=== PATIENT | male | born 1985 | race Caucasian/White ===

== ENCOUNTER 2024-04-07 08:40 | Inpatient (IN) | payer MEDICARE, MEDICAID ==
[~2024-04-07] VITALS: Ht 185.4 cm; Wt 96.6 kg
[~2024-04-07 08:40] MED LIST: FLUO-167 PO; HYDR-3686 PO; LITH450T2 PO; OLAN5TAB29 PO; PALI6TAB PO
[2024-04-07 09:40] LABS: BASOPHILS % (AUTO) 0.4 % (0-1); EOSINOPHILS # (AUTO) 0.1 X10'3 (0-0.9); EOSINOPHILS % (AUTO) 1.3 % (0-6); HEMATOCRIT 41.5 % (42.0-52.0); HEMOGLOBIN 13.9 g/dl (14.0-17.9); LYMPHOCYTES # (AUTO) 1.7 X10'3 (1.1-4.8); LYMPHOCYTES % (AUTO) 20.8 % (21-51); MEAN CORPUSCULAR HEMOGLOBIN 28.9 PG (27.0-31.0); MEAN CORPUSCULAR HGB CONC 33.5 g/dL (33.0-36.5); MEAN CORPUSCULAR VOLUME 86.1 FL (78-98); MONOCYTES # (AUTO) 0.6 X10'3 (0-0.9); MONOCYTES % (AUTO) 7.2 % (2-12); NEUTROPHILS # (AUTO) 5.6 X10'3 (1.8-7.7); NEUTROPHILS % (AUTO) 70.3 % (42-75); PLATELET COUNT 290 X10'3 (140-440); RED BLOOD COUNT 4.82 X10'6 (4.70-6.10); RED CELL DISTRIBUTION WIDTH 13.6 % (11.5-14.5)
[2024-04-07 10:05] LABS: ALBUMIN 3.5 G/DL (3.4-5.0); ANION GAP 7 (8-16); BLOOD UREA NITROGEN 16 MG/DL (7-18); BUN/CREATININE RATIO 16.7 (10.0-20.0); CALCIUM 9.2 MG/DL (8.5-10.1); CHLORIDE 105 MMOL/L (99-107); CREATININE 0.96 MG/DL (0.60-1.10); GLUCOSE 107 MG/DL (70-104); POTASSIUM 4.3 MMOL/L (3.5-5.1); SODIUM 140 MMOL/L (135-145); THYROID STIMULATING HORMONE 1.03 ulU/ml (0.34-4.50); TOTAL CARBON DIOXIDE 28.1 MMOL/L (24-32); eCRCL 96 ML/MIN; eGFR 87 ML/MIN
[2024-04-07 10:13] LABS: ETHANOL < 10 MG/DL (<10)
[2024-04-07 11:11] LABS: BILIRUBIN,URINE NEGATIVE (Neg); CLARITY,URINE CLEAR (Clear); COLOR,URINE YELLOW (Yellow); GLUCOSE, URINE NEGATIVE (Neg); KETONES,URINE NEGATIVE (Neg); LEUKOCYTE ESTERASE ,URINE NEGATIVE (Neg); NITRITES, URINE NEGATIVE (Neg); OCCULT BLOOD,URINE NEGATIVE (Neg); PH,URINE 6.5 (4.8-8.0); PROTEIN,URINE NEGATIVE (Neg); UROBILINOGEN,URINE 0.2 E.U/dL (0.2-1.0)
[2024-04-07 11:17] LABS: UA COLLECTION TYPE CLN CATCH MIDSTREAM
[2024-04-07 11:23] LABS: URINE AMPHETAMINE SCREEN NEGATIVE (Neg); URINE BARBITUATE SCREEN NEGATIVE (Neg); URINE BENZODIAZEPINES SCREEN NEGATIVE (Neg); URINE CANNABINOID SCREEN NEGATIVE (Neg); URINE COCAINE SCREEN NEGATIVE (Neg); URINE METHADONE SCREEN NEGATIVE (Neg); URINE OPIATE SCREEN NEGATIVE (Neg); URINE PHENCYCLIDINE SCREEN NEGATIVE (Neg)
[2024-04-07] MEDS ORDERED: HYDR50TA65 (13:15)
[2024-04-07] MEDS ORDERED: LIT300C (13:15)
[2024-04-07] MEDS ORDERED: HALO5TAB PO (13:15)
[2024-04-07] MEDS ORDERED: PALI6TAB6 (13:15)
[2024-04-07] MEDS ORDERED: DIPH50CA37 (13:15)
[2024-04-07] MEDS ORDERED: TRAZ-251 PO (13:15)
[2024-04-07] MEDS: haloperidol 5mg tablet PO ONE (13:24)
[2024-04-07] MEDS ORDERED: LORazepam 1 MG tablet PO ONE (17:45)
[2024-04-07 21:12] VITALS: BP 107/64; PULSE 79; RESP 20; TEMP 98; O2SAT 99
[2024-04-07] MEDS ORDERED: traZODone 50mg tablet PO ONE (22:20)
[2024-04-07] MEDS ORDERED: mag hydrox/Alum hydrox/simeth 30ml oral suspension PO PRN (22:20)
[2024-04-07] MEDS ORDERED: magnesium hydroxide 30ml (MOM) UD suspension PO PRN (22:20)
[2024-04-07] MEDS ORDERED: acetaminophen 325mg tablet PO PRN (22:20)
[2024-04-07] MEDS ORDERED: lithium carbonate 450mg CR tablet PO SCH (22:20)
[2024-04-07] MEDS ORDERED: PALI6TAB PO (22:30)
[2024-04-07] MEDS ORDERED: LITH450T2 PO (22:38)
[2024-04-07] MEDS: lithium carbonate 450mg CR tablet PO SCH (23:47)
[2024-04-07] MEDS: traZODone 50mg tablet PO SCH (23:49)
[2024-04-08 06:22] LABS: CHOL/HDL RATIO 2.1 (0.00-4.99); CHOLESTEROL 114 MG/DL (0-200); HDL CHOLESTEROL 54 MG/DL (35-60); LDL CHOLESTEROL 53 MG/DL (50-100); TRIGLYCERIDES 45 MG/DL (20-135)
[2024-04-08 07:00] VITALS: RESP 16
[2024-04-08] MEDS: PALIPERIDONE 3 MG TAB.ER.24 PO SCH (07:32)
[2024-04-08] MEDS ORDERED: PALIPERIDONE PO SCH (08:00)
[2024-04-08 10:07] VITALS: RESP 16
[2024-04-08 19:00] VITALS: RESP 16
[2024-04-08 20:00] VITALS: BP 113/79; PULSE 78; RESP 16; TEMP 97.8; O2SAT 99
[2024-04-08] MEDS: traZODone 50mg tablet PO SCH (20:22)
[2024-04-08] MEDS: lithium carbonate 450mg CR tablet PO SCH (21:00)
[2024-04-08] MEDS ORDERED: traZODone 50mg tablet PO SCH (21:00)
[2024-04-08] MEDS: sulfamethoxazole/trimethoprim DS (800/160mg) tablet PO SCH (22:52)
[2024-04-09] MEDS: acetaminophen 325mg tablet PO PRN (00:27)
[2024-04-09 07:00] VITALS: RESP 18; O2SAT 98
[2024-04-09 08:00] VITALS: BP 127/77; PULSE 77; RESP 18; TEMP 98.5; O2SAT 98
[2024-04-09 19:00] VITALS: RESP 16
[2024-04-09 20:00] VITALS: BP 105/74; PULSE 72; RESP 16; TEMP 97.8; O2SAT 98
[2024-04-10 07:00] VITALS: RESP 16; O2SAT 99
[2024-04-10 08:00] VITALS: BP 109/67; PULSE 69; RESP 16; TEMP 98.3; O2SAT 99
[2024-04-10 19:00] VITALS: RESP 16; O2SAT 98
[2024-04-10 19:53] VITALS: BP 130/80; PULSE 75; RESP 16; TEMP 98.7; O2SAT 98
[2024-04-11 06:15] VITALS: BP 114/67; PULSE 61; RESP 14; TEMP 98.4; O2SAT 97
[2024-04-11] MEDS ORDERED: SULF1TAB45 PO (07:37)
[2024-04-11 07:59] VITALS: RESP 14; O2SAT 97
== END 2024-04-11 16:48 | disposition home or self-care (01) | DRG 885 ==
LOC: ER 08:41 → ADULT MH 18:00 → UNDOADMIN 18:00 → ADULT MH 22:53
PROVIDERS: ADMIT Psychiatry & Neurology Psychiatry; ATTEND Psychiatry & Neurology Psychiatry
PROC: GZHZZZZ Group Psychotherapy (ICD-10-PCS; principal; 2024-04-08)
PROC: GZ51ZZZ Individual Psychotherapy, Behavioral (ICD-10-PCS; 2024-04-08)
DX: F25.9 Schizoaffective disorder, unspecified (principal); Z59.00 Homelessness unspecified; R45.851 Suicidal ideations; F41.9 Anxiety disorder, unspecified; S61.512A Laceration without foreign body of left wrist, initial encounter; X78.8XXA Intentional self-harm by other sharp object, initial encounter; Y93.89 Activity, other specified; Y92.89 Other specified places as the place of occurrence of the external cause; Y99.8 Other external cause status; Z91.148 Patient's other noncompliance with medication regimen for other reason; Z81.8 Family history of other mental and behavioral disorders; Z79.899 Other long term (current) drug therapy; Z88.8 Allergy status to other drugs, medicaments and biological substances
CPT/HCPCS: 36415; 73100; 80048; 80061; 80305; 80320; 81003; 84443; 85025; 87081; 87811; 99285

== ENCOUNTER 2024-04-30 15:14 | Inpatient (IN) | payer MEDICARE, MEDICAID ==
[~2024-04-30] VITALS: Ht 185.4 cm; Wt 87.0 kg
[~2024-04-30 15:14] MED LIST changes: -FLUO-167 PO; -HYDR-3686 PO; -OLAN5TAB29 PO; +SULF1TAB45 PO; +TRAZ-251 PO
[2024-04-30 15:48] LABS: BASOPHILS % (AUTO) 0.5 % (0-1); EOSINOPHILS % (AUTO) 0.1 % (0-6); HEMATOCRIT 39.5 % (42.0-52.0); HEMOGLOBIN 13.7 g/dl (14.0-17.9); LYMPHOCYTES # (AUTO) 1.4 X10'3 (1.1-4.8); LYMPHOCYTES % (AUTO) 14.4 % (21-51); MEAN CORPUSCULAR HEMOGLOBIN 29.6 PG (27.0-31.0); MEAN CORPUSCULAR HGB CONC 34.6 g/dL (33.0-36.5); MEAN CORPUSCULAR VOLUME 85.7 FL (78-98); MEAN PLATELET VOLUME 6.1 FL (7.4-10.4); MONOCYTES # (AUTO) 1.3 X10'3 (0-0.9); MONOCYTES % (AUTO) 12.7 % (2-12); NEUTROPHILS # (AUTO) 7.2 X10'3 (1.8-7.7); NEUTROPHILS % (AUTO) 72.3 % (42-75); PLATELET COUNT 217 X10'3 (140-440); RED BLOOD COUNT 4.61 X10'6 (4.70-6.10); RED CELL DISTRIBUTION WIDTH 13.7 % (11.5-14.5)
[2024-04-30 16:12] LABS: ALBUMIN 3.6 G/DL (3.4-5.0); ANION GAP 9 (8-16); BLOOD UREA NITROGEN 13 MG/DL (7-18); BUN/CREATININE RATIO 11.8 (10.0-20.0); CALCIUM 8.9 MG/DL (8.5-10.1); CHLORIDE 98 MMOL/L (99-107); ETHANOL < 10 MG/DL (<10); GLUCOSE 102 MG/DL (70-104); POTASSIUM 4.1 MMOL/L (3.5-5.1); SODIUM 134 MMOL/L (135-145); THYROID STIMULATING HORMONE 0.86 ulU/ml (0.34-4.50); TOTAL CARBON DIOXIDE 26.6 MMOL/L (24-32); eCRCL 101 ML/MIN; eGFR 74 ML/MIN
[2024-04-30 16:12] LABS: BILIRUBIN,URINE SMALL (Neg); CLARITY,URINE CLEAR (Clear); GLUCOSE, URINE 100 mg/dl (Neg); KETONES,URINE 40 mg/dl (Neg); LEUKOCYTE ESTERASE ,URINE NEGATIVE (Neg); NITRITES, URINE NEGATIVE (Neg); OCCULT BLOOD,URINE NEGATIVE (Neg); PH,URINE 5.5 (4.8-8.0); PROTEIN,URINE 30 mg/dl (Neg); UROBILINOGEN,URINE 0.2 E.U/dL (0.2-1.0)
[2024-04-30 16:16] LABS: URINE AMPHETAMINE SCREEN NEGATIVE (Neg); URINE BARBITUATE SCREEN NEGATIVE (Neg); URINE BENZODIAZEPINES SCREEN NEGATIVE (Neg); URINE CANNABINOID SCREEN NEGATIVE (Neg); URINE COCAINE SCREEN NEGATIVE (Neg); URINE METHADONE SCREEN NEGATIVE (Neg); URINE OPIATE SCREEN NEGATIVE (Neg); URINE PHENCYCLIDINE SCREEN NEGATIVE (Neg)
[2024-04-30 16:20] LABS: COLOR,URINE DARK YELLOW (Yellow); UA COLLECTION TYPE VOIDED
[2024-04-30 16:26] LABS: BACTERIA,URINE 1+ /HPF (Neg); FINE GRANULAR CAST 0-3 /LPF (NEGATIVE); HYALINE CASTS 0-3 /LPF (NEGATIVE); RBC,URINE NONE SEEN /HPF (0-2); SQUAMOUS EPITHELIAL CELL,UR FEW /LPF (FEW); WBC,URINE 0-4 /HPF (0-4)
[2024-04-30] MEDS ORDERED: OLAN5TAB5 PO (19:29)
[2024-04-30] MEDS: traZODone 50mg tablet PO ONE (22:45)
[2024-05-01] MEDS: olanzapine 10mg tablet PO SCH (08:20)
[2024-05-01] MEDS: PALIPERIDONE 3 MG TAB.ER.24 PO SCH (08:20)
[2024-05-01] MEDS ORDERED: LITH150C8 PO (21:38)
[2024-05-01] MEDS: traZODone 50mg tablet PO SCH (21:44)
[2024-05-01] MEDS: lithium carbonate 450mg CR tablet PO SCH (21:44)
[2024-05-01 21:54] VITALS: RESP 16
[2024-05-01 21:58] VITALS: BP 103/71; PULSE 79; RESP 18; TEMP 98.3; O2SAT 97
[2024-05-01] MEDS ORDERED: mag hydrox/Alum hydrox/simeth 30ml oral suspension PO PRN (22:00)
[2024-05-01] MEDS ORDERED: acetaminophen 325mg tablet PO PRN (22:00)
[2024-05-01] MEDS ORDERED: magnesium hydroxide 30ml (MOM) UD suspension PO PRN (22:00)
[2024-05-02 07:00] VITALS: RESP 16; O2SAT 97
[2024-05-02 08:00] VITALS: BP 104/67; PULSE 68; RESP 16; TEMP 97.7; O2SAT 97
[2024-05-02 08:30] LABS: CHOL/HDL RATIO 2.6 (0.00-4.99); CHOLESTEROL 125 MG/DL (0-200); HDL CHOLESTEROL 49 MG/DL (35-60); LDL CHOLESTEROL 69 MG/DL (50-100); TRIGLYCERIDES 43 MG/DL (20-135)
[2024-05-02 19:00] VITALS: RESP 16; O2SAT 99
[2024-05-02 20:00] VITALS: BP 94/65; PULSE 68; RESP 16; TEMP 98.2; O2SAT 99
[2024-05-02] MEDS: acetaminophen 325mg tablet PO PRN (21:25)
[2024-05-02] MEDS: olanzapine 10mg tablet PO SCH (21:25)
[2024-05-03 07:00] VITALS: RESP 12; O2SAT 98
[2024-05-03 08:00] VITALS: BP 97/62; PULSE 60; RESP 12; TEMP 98.1; O2SAT 98
[2024-05-03] MEDS: hydrOXYzine 25 MG tablet PO ONE (18:56)
[2024-05-03 19:00] VITALS: RESP 16; O2SAT 97
[2024-05-03 20:00] VITALS: BP 105/69; PULSE 76; RESP 16; TEMP 99.1; O2SAT 97
[2024-05-04 07:00] VITALS: RESP 16; O2SAT 97
[2024-05-04 08:00] VITALS: BP 108/75; PULSE 72; RESP 16; TEMP 99.2; O2SAT 97
[2024-05-04] MEDS ORDERED: PALI6TAB PO (08:53)
[2024-05-04] MEDS ORDERED: lithium carbonate 450mg CR PO (08:53)
[2024-05-04] MEDS ORDERED: TRAZ-251 PO (08:53)
[2024-05-04] MEDS ORDERED: OLAN10TA73 PO (08:53)
[2024-05-04] MEDS: azithromycin 250mg tablet PO SCH (13:33)
[2024-05-04 14:24] LABS: STREP A SCREEN NEGATIVE (Neg)
[2024-05-04 19:00] VITALS: RESP 18; O2SAT 95
[2024-05-04 20:00] VITALS: BP 101/88; PULSE 86; RESP 18; TEMP 98.6; O2SAT 95
[2024-05-04] MEDS: lactobacillus rhamnosus 10,000 MMU CELLS/CAPSULE PO SCH (20:30)
[2024-05-05 07:30] VITALS: BP 99/69; PULSE 62; RESP 14; TEMP 98.1; O2SAT 97
[2024-05-05] MEDS ORDERED: HALLS - SOOTHE MENTHOL 1.8 MG cough drop LOZENGE MM PRN (16:55)
[2024-05-05 19:00] VITALS: RESP 17; O2SAT 98
[2024-05-05 20:00] VITALS: PULSE 85; RESP 20; TEMP 98.5; O2SAT 100
[2024-05-06 07:00] VITALS: RESP 14; O2SAT 99
[2024-05-06 08:00] VITALS: BP 105/62; PULSE 68; RESP 14; TEMP 97.9; O2SAT 99
[2024-05-06 19:00] VITALS: RESP 20; O2SAT 99
[2024-05-06 19:57] VITALS: BP 111/63; PULSE 100; RESP 20; TEMP 97.3; O2SAT 99
[2024-05-07 07:00] VITALS: BP 99/67; PULSE 68; RESP 16; TEMP 98; O2SAT 98
[2024-05-07 10:53] VITALS: BP 99/67; PULSE 68; RESP 16; TEMP 98.6; O2SAT 100
[2024-05-07 19:00] VITALS: RESP 20; O2SAT 98
[2024-05-07 20:00] VITALS: BP 103/68; PULSE 67; RESP 20; TEMP 97.8; O2SAT 97
[2024-05-08 07:00] VITALS: RESP 16; O2SAT 98
[2024-05-08 08:00] VITALS: BP 106/66; PULSE 62; RESP 16; TEMP 98.2; O2SAT 98
== END 2024-05-08 11:45 | DRG 885 ==
LOC: ER 15:14 → ADULT MH 05-01 21:00
PROVIDERS: ADMIT Psychiatry & Neurology Psychiatry; ATTEND Psychiatry & Neurology Psychiatry
DX: F25.9 Schizoaffective disorder, unspecified (principal); F19.951 Other psychoactive substance use, unspecified with psychoactive substance-induced psychotic disorder with hallucinations; R45.851 Suicidal ideations; F32.9 Major depressive disorder, single episode, unspecified; Z20.822 Contact with and (suspected) exposure to COVID-19; M25.572 Pain in left ankle and joints of left foot; M25.571 Pain in right ankle and joints of right foot; J06.9 Acute upper respiratory infection, unspecified; J02.9 Acute pharyngitis, unspecified; Z79.899 Other long term (current) drug therapy; Z81.8 Family history of other mental and behavioral disorders; Z91.148 Patient's other noncompliance with medication regimen for other reason; Z91.51 Personal history of suicidal behavior
CPT/HCPCS: 36415; 71045; 73610; 80048; 80061; 80178; 80305; 80320; 81001; 84443; 85025; 87081; 87502; 87503; 87811; 87880; 99285; Q0177

== ENCOUNTER 2024-08-21 10:36 | Inpatient (IN) | payer MEDICARE, MEDICAID ==
[~2024-08-21] VITALS: Ht 185.4 cm; Wt 116.5 kg
[~2024-08-21 10:36] MED LIST changes: -LITH450T2 PO; +OLAN10TA73 PO; -SULF1TAB45 PO; +lithium carbonate 450mg CR PO
[2024-08-21 11:32] LABS: BASOPHILS % (AUTO) 0.7 % (0-1); EOSINOPHILS # (AUTO) 0.3 X10'3 (0-0.9); EOSINOPHILS % (AUTO) 5.1 % (0-6); HEMATOCRIT 42.3 % (42.0-52.0); HEMOGLOBIN 14.7 g/dl (14.0-17.9); LYMPHOCYTES # (AUTO) 1.6 X10'3 (1.1-4.8); LYMPHOCYTES % (AUTO) 24.8 % (21-51); MEAN CORPUSCULAR HEMOGLOBIN 29.7 PG (27.0-31.0); MEAN CORPUSCULAR HGB CONC 34.8 g/dL (33.0-36.5); MEAN CORPUSCULAR VOLUME 85.4 FL (78-98); MEAN PLATELET VOLUME 6.2 FL (7.4-10.4); MONOCYTES # (AUTO) 0.6 X10'3 (0-0.9); MONOCYTES % (AUTO) 9.8 % (2-12); NEUTROPHILS # (AUTO) 3.8 X10'3 (1.8-7.7); NEUTROPHILS % (AUTO) 59.6 % (42-75); PLATELET COUNT 227 X10'3 (140-440); RED BLOOD COUNT 4.95 X10'6 (4.70-6.10); RED CELL DISTRIBUTION WIDTH 13.4 % (11.5-14.5); WHITE BLOOD COUNT 6.4 X10'3 (4.5-11.0)
--- NOTE | 2024-08-21 11:39 | Physician Documentation ---
History of Present Illness ~ Chief Complaint: Suicidal Ideation Stated Complaint: MH Time Seen by MD: 11:04 Primary Medical Doctor: cannot remember psychiatrist Mode of Arrival: Other HPI 39-year-old male with a history of schizophrenia presenting with suicidal ideations. Patient reports that he has been off of his meds for the past several days and today tried to commit suicide by walking into traffic. He states that he walked into traffic and cars were swerving around him. He subsequently called 911 and asked for help. He was brought to hospital. Currently he endorses thoughts of hurting himself. Medication Reconciliation Allergies: Uncoded Allergies: LAMICTAL (Allergy, Mild, HAND SWELLING, 02/26/24) Scheduled Olanzapine (Olanzapine), 20 MG PO HS Paliperidone (Invega), 2 TAB PO QAM Trazodone HCl (Trazodone HCl), 1 TAB PO HS [lithium carbonate 450mg CR], 900 MG PO HS Past Medical History Past Medical History: Psychosis, Schizophrenia Patient History: Anxiety disorder MOTHER Review of Systems All Other Systems at this time: Reviewed and Negative Physical Exam Vital Signs: Temperature: 97.0, Source: Oral, Heart Rate: 113, Respiratory Rate: 16, BP: 108/80, Pulse Oximetry: 98, Weight: 93.100 Physical Exam I have reviewed the triage vitals. CONST: Well developed and well nourished. In no acute distress HENT: Head Atraumatic EYES: Pupils are equal, round and reactive to light. Normal conjunctiva NECK: Normal range of motion. Supple. CARDIO: Normal rate and regular rhythm. No murmurs, rubs, or gallops. S1, S2. PULM/CHEST: No respiratory distress. Lungs clear to auscultation. No wheeze ABD: Soft and nontender. Nondistended. Bowel sounds normal. No guarding. : Exam deferred MSK: No edema. No deformity. NEURO: Alert and oriented to person, place and time. Moving all extremities SKIN: Warm and dry. PSYCH: Depressed mood, endorses suicidal ideations, endorses hallucinations. Progress Results/Orders Results/Orders Orders - JOSE M OSBORNE MD Regular Diet (08/21/24 Lunch) Completed Orders - JOSE M OSBORNE MD Cbc/Diff (08/21/24 11:04) BMP (08/21/24 11:04) Drug Screen, Urine (08/21/24 11:04) Ethanol (08/21/24 11:04) Salicylate (08/21/24 11:04) Acetaminophen (08/21/24 11:04) Olanzapine Tablet (Zyprexa Tablet) (08/21/24 11:50) Olanzapine Tablet (Zyprexa Tablet) (08/21/24 12:20) Medications Received in ER Medications (Trade) Dose Ordered Sig/Malka Route PRN Reason Start Time Stop Time Status Last Admin Dose Admin (ZyPREXA tablet) 20 mg NOW ONCE PO 08/21/24 11:50 08/21/24 11:51 DC 08/21/24 12:32 20 MG (Zyprexa tablet) 20 mg NOW ONCE PO 08/21/24 12:20 08/21/24 12:21 DC 08/21/24 12:19 20 MG Vital Signs 08/21/24 08/21/24 10:38 11:14 Temp 97.0 Pulse 113 Resp 15 16 B/P (MAP) 108/80 Pulse Ox 98 Laboratory Tests Test 08/21/24 11:20 08/21/24 11:29 White Blood Count 6.4 Red Blood Count 4.95 Hemoglobin 14.7 Hematocrit 42.3 Mean Corpuscular Volume 85.4 Mean Corpuscular Hemoglobin 29.7 Mean Corpuscular Hemoglobin Concent 34.8 Red Cell Distribution Width 13.4 Platelet Count 227 Mean Platelet Volume 6.2 L Neutrophils (%) (Auto) 59.6 Lymphocytes (%) (Auto) 24.8 Monocytes (%) (Auto) 9.8 Eosinophils (%) (Auto) 5.1 Basophils (%) (Auto) 0.7 Neutrophils # (Auto) 3.8 Lymphocytes # (Auto) 1.6 Monocytes # (Auto) 0.6 Eosinophils # (Auto) 0.3 Basophils # (Auto) 0.0 CBC Comment Sodium Level 141 Potassium Level 3.6 Chloride Level 105 Carbon Dioxide Level 28.3 Anion Gap 8 Blood Urea Nitrogen 12 Creatinine 1.06 Estimated GFR/1.73 m2 77 BUN/Creatinine Ratio 11.3 Glucose Level 101 Calcium Level 8.8 Albumin 3.7 Chemistry Comments Salicylates Level 0.0 L Acetaminophen Level < 2.0 L Ethyl Alcohol Level < 10 Urine Opiates Screen Negative Urine Methadone Screen Negative Urine Fentanyl Screen Negative Urine Barbiturates Screen Negative Urine Phencyclidine Screen Negative Urine Amphetamines Screen Negative Urine Benzodiazepines Screen Negative Urine Cocaine Screen Negative Urine Cannabinoids Screen Negative Drug Screen Comment SARS-CoV-2 Antigen (Rapid) Negative Medical Decision Making Differential Diagnosis 39-year-old male presenting with suicidal ideations. Patient is medically cleared at this time for psychiatric evaluation. Departure Referrals: NO PRIMARY CARE PROVIDER (PCP) JOSE M OSBORNE MD Aug 21, 2024 11:39
[2024-08-21 11:46] LABS: ALBUMIN 3.7 G/DL (3.4-5.0); ANION GAP 8 (8-16); BLOOD UREA NITROGEN 12 MG/DL (7-18); BUN/CREATININE RATIO 11.3 (10.0-20.0); CALCIUM 8.8 MG/DL (8.5-10.1); CHLORIDE 105 MMOL/L (99-107); CREATININE 1.06 MG/DL (0.60-1.10); GLUCOSE 101 MG/DL (70-104); POTASSIUM 3.6 MMOL/L (3.5-5.1); SODIUM 141 MMOL/L (135-145); TOTAL CARBON DIOXIDE 28.3 MMOL/L (24-32); eCRCL 104 ML/MIN; eGFR 77 ML/MIN
[2024-08-21 11:54] LABS: ACETAMINOPHEN < 2.0 UG/ML (10-30); ETHANOL < 10 MG/DL (<10)
[2024-08-21] MEDS: olanzapine 10mg tablet PO ONE (12:19)
[2024-08-21] MEDS: OLANZapine 2.5MG tablet PO ONE (12:32)
[2024-08-21 13:00] LABS: URINE AMPHETAMINE SCREEN NEGATIVE (Neg); URINE BARBITUATE SCREEN NEGATIVE (Neg); URINE BENZODIAZEPINES SCREEN NEGATIVE (Neg); URINE CANNABINOID SCREEN NEGATIVE (Neg); URINE COCAINE SCREEN NEGATIVE (Neg); URINE METHADONE SCREEN NEGATIVE (Neg); URINE OPIATE SCREEN NEGATIVE (Neg); URINE PHENCYCLIDINE SCREEN NEGATIVE (Neg)
[2024-08-21] MEDS ORDERED: traZODone 50mg tablet PO PRN (23:05)
[2024-08-21] MEDS ORDERED: magnesium hydroxide 30ml (MOM) UD suspension PO PRN (23:10)
[2024-08-21] MEDS ORDERED: mag hydrox/Alum hydrox/simeth 30ml oral suspension PO PRN (23:10)
[2024-08-21] MEDS ORDERED: acetaminophen 325mg tablet PO PRN ×2 (23:10)
[2024-08-21 23:40] VITALS: BP 110/71; PULSE 77; TEMP 97.9; O2SAT 98
[2024-08-22 07:00] VITALS: RESP 16; O2SAT 98
[2024-08-22] MEDS: olanzapine 10mg tablet PO SCH (07:53)
[2024-08-22] MEDS: lithium carbonate 450mg CR tablet PO SCH (07:53)
[2024-08-22] MEDS: PALIPERIDONE 3 MG TAB.ER.24 PO SCH (07:53)
[2024-08-22 08:00] VITALS: BP 106/64; PULSE 63; RESP 16; TEMP 98; O2SAT 98
[2024-08-22 08:26] LABS: CHOL/HDL RATIO 3.6 (0.00-4.99); CHOLESTEROL 188 MG/DL (0-200); HDL CHOLESTEROL 52 MG/DL (35-60); LDL CHOLESTEROL 116 MG/DL (50-100); TRIGLYCERIDES 94 MG/DL (20-135)
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
[2024-08-22 18:44] VITALS: RESP 14; O2SAT 98
[2024-08-22 19:21] VITALS: BP 97/70; PULSE 66; RESP 18; TEMP 97.5; O2SAT 97
--- NOTE | 2024-08-22 21:57 | HISTORY AND PHYSICAL-Residence ---
History & Physical Providers to CC Resident Creating Document: HAWK BAIRES, RES ~ History of Present Illness Primary Medical Doctor: cannot remember psychiatrist Reason for Admit\Complaint: Schizophrenia History of Present Illness 39-year-old male with a history of schizophrenia was admitted into the mental health unit for suicidal ideation. He denies any medical complaints including chest pain, palpitations, headache, shortness of breadth, abdominal pain, nausea, vomiting. Allergies: Uncoded Allergies: LAMICTAL (Allergy, Mild, HAND SWELLING, 02/26/24) Home Medications Home Medications Active [lithium carbonate 450mg CR] 450 MG Tablet.sa 900 Mg PO HS 30 Days Olanzapine 10 Mg Tablet 20 Mg PO HS 30 Days Trazodone HCl 50 Mg Tablet 1 Tab PO HS 30 Days Invega (Paliperidone) 6 Mg Tab.er.24 2 Tab PO QAM 30 Days Past Medical History Past Medical History Schizophrenia Past Surgical History Surgical History Comment No surgical Family History Family History: Anxiety disorder FATHER (autism and schizophrenia), Onset: - MOTHER, Onset: - Autism Autism in sibling Past Social History Social History Comment Denies history of smoking Denies history of alcohol use Denies history of drug ROS All Other Systems: Reviewed and Negative Exam Vitals: Vital Signs Date Time Temp Pulse Resp B/P (MAP) Pulse Ox O2 Delivery O2 Flow Rate FiO2 08/22/24 19:21 97.5 66 18 97/70 (79) 97 Room Air General: General: Awake and Alert, no acute distress. HEENT: Conjunctiva pink, Sclera clear, Mucus Membranes moist. Resp: Bilateral lung sounds are clear. Heart: Regular Rate and rhythm, normal S1 and S2 without murmur, rub or gallop. Abdomen: No tenderness, no guarding, no rigidity, bowel sounds heard Extremities: No cyanosis,clubbing or edema bilateral lower and upper extremity edema. Skin: Warm and Dry. SHANK BURNISHER: Conscious, coherent, oriented x3. No motor or sensory deficits. No cranial nerve deficits Diagnostic Data Last Recorded Lab Results: 08/21/24 1120 08/21/24 1120 Additional Plan Schizophrenia -Managed as per Psychiatry Labs reviewed Hospitalist team we will continue to follow Hawk Baires M.D PGY1 Date of Service: Aug 22, 2024 Billing Provider: ENA BOWERS MD Common Visit Codes: [id number] INP/OBS CARE (HIGH) HAWK BAIRES, RES Aug 22, 2024 21:57 ENA BOWERS MD August 23, 2024 06:48
[2024-08-23 07:00] VITALS: RESP 16; O2SAT 98
[2024-08-23 08:00] VITALS: BP 114/87; PULSE 74; RESP 16; TEMP 97.4; O2SAT 98
--- NOTE | 2024-08-23 08:20 | PROGRESS NOTE ---
Progress Note Dictate Providers to CC ~ Central Line/PICC still needed: N\\A Antibiotic Ordered?: No MRSA Education MRSA Education Provided to pt: No Objective Vitals Vital Signs Date Time Temp Pulse Resp B/P (MAP) Pulse Ox O2 Delivery O2 Flow Rate FiO2 08/22/24 19:21 97.5 66 18 97/70 (79) 97 Room Air Lab Results: 08/21/24 1120 08/21/24 1120 Psychiatrist's Progress Note Date of Service: August 23, 2024 Notes CHART REVIEW Tc is a 39-year-old male being held as [facility] on a 5150 for danger to self. Client was awake and alert. He was disoriented. He described his mood as suicidal. Mood appeared depressed and affect flat. Recall was immediate. Client reported AH/VH was paranoid stated I am hearing voices and seeing people that want to kill me. Client reports that he forgot to take his medication for the last several days and became suicidal this morning and walked out into traffic. He states that he realized that he was in trouble and called EMS. Client continues to endorsed SI in his eye able to plan for safety. ASSESSMENT The patient was interviewed in observation room. The patient was actively sitting in rec room. The patient endorses "suicidal." Patient endorses "I still hear voices and people telling me to kill myself." "It is getting better but not there yet." The patient endorses adequate sleep and food intake. Denies HI. The patient is stable no acute distress noted. The patient is depressed, suicidal, and engaged during session. Report patient is medication compliant. Per staff report no abnormal behaviors noted. Will continue daily assessment and adjusting treatment as needed. Closely monitor behavior and response to medication during hospitalization. Results Of any Diagn. Testing REVIEW OF LABS SODIUM 141 POTASSIUM 3.6 CHLORIDE 105 ANION GAP8 BUN 12 CREATININE 1.06 GLUCOSE 101 CALCIUM 8.8 TRIGLYCERIDES 94 CHOLESTEROL 188 LDL 116 HDL 52 NEGATIVE WBC 6.4 RBC 4.95 HEMOGLOBIN 14.7 HEMATOCRIT 42.3 PLATELET 227 Speech: Other (CIRCUMSTANTIAL) Eye Contact: Avoidant Motor Activity: Normal Affect: Flat Mood: Depressed Orientation Impairment: None Memory Impairment: None Attention: Normal Hallucinations: Auditory, Visual Other: None Suicidality: Ideation Homicidality: None Delusions: None Behavior: Guarded Insight: Poor Judgment: Poor Treatment PALIPERIDONE 12 MG P.O. DAILY OLANZAPINE 20 MG P.O. DAILY LITHIUM CARBONATE 450 MG CR P.O. Q.A.M. Monitoring by Staff, Milieu, Group, and Individual counseling as needed -- According to the [place] Suicide Assessment the above named patient is on Q15 MINUTE CHECKS. [id number]- The patient does not have a good safety plan for discharge at this time. We are still titrating medications to an effective dose while maintaining a therapeutic environment to prevent decompensation and readmission. REVIEW OF Clinical notes [X ] RN notes [X] PCT documentation [X] SW notes Labs [ X] Medications [X] Care trends/care activity [X] Vitals [X] DISCUSSION WITH engineering mechanic [X] Staff SW [X] Treatment Team [X] Discharge UNSURE AT THIS TIME. [facility] OR [facility]AP[facility] CODING VISIT-PSYCHIATRY Date of Service: August 23, 2024 Billing Provider: CHESTER FAUSTIN APRN Psych Common Visit Codes: [id number] INP/OBS CARE(Mod) CHESTER FAUSTIN APRN August 23, 2024 08:20
[2024-08-23 18:40] VITALS: RESP 14; O2SAT 99
[2024-08-23 19:53] VITALS: BP 108/64; PULSE 67; RESP 16; TEMP 97.7; O2SAT 95
[2024-08-24 07:00] VITALS: RESP 18; O2SAT 96
--- NOTE | 2024-08-24 07:38 | PROGRESS NOTE ---
Progress Note Dictate Providers to CC ~ Central Line/PICC still needed: N\\A Antibiotic Ordered?: No MRSA Education MRSA Education Provided to pt: No Objective Vitals Vital Signs Date Time Temp Pulse Resp B/P (MAP) Pulse Ox O2 Delivery O2 Flow Rate FiO2 08/23/24 19:53 97.7 67 16 108/64 (79) 95 Room Air Lab Results: 08/21/24 1120 08/21/24 1120 Problem\\Assessment\\Plan Problems/Diagnosis: (1) Schizo-affective schizophrenia, chronic condition with acute exacerbation (2) Suicidal ideation Psychiatrist's Progress Note Date of Service: August 24, 2024 Notes CHART REVIEW Tc is a 39-year-old male being held as [facility] on a 5150 for danger to self. Client was awake and alert. He was disoriented. He described his mood as suicidal. Mood appeared depressed and affect flat. Recall was immediate. Client reported AH/VH was paranoid stated I am hearing voices and seeing people that want to kill me. Client reports that he forgot to take his medication for the last several days and became suicidal this morning and walked out into traffic. He states that he realized that he was in trouble and called EMS. Client continues to endorsed SI in his eye able to plan for safety. ASSESSMENT The patient was interviewed in observation room. The patient was actively walking in hallway. The patient endorses "I still feel suicidal and I still hear voices telling me to kill myself." "They are getting better." "I still see people." The patient endorses adequate sleep and food intake. Denies HI. The patient is stable no acute distress noted. The patient is less depressed, suicidal, and engaged during session. Report patient is medication compliant. Per staff report no abnormal behaviors noted. Will continue daily assessment and adjusting treatment as needed. Closely monitor behavior and response to medication during hospitalization. Results Of any Diagn. Testing REVIEW OF LABS SODIUM 141 POTASSIUM 3.6 CHLORIDE 105 ANION GAP8 BUN 12 CREATININE 1.06 GLUCOSE 101 CALCIUM 8.8 TRIGLYCERIDES 94 CHOLESTEROL 188 LDL 116 HDL 52 NEGATIVE WBC 6.4 RBC 4.95 HEMOGLOBIN 14.7 HEMATOCRIT 42.3 PLATELET 227 Speech: Other (CIRCUMSTANTIAL) Eye Contact: Other (INTERMITTENT) Motor Activity: Normal Affect: Flat Mood: Depressed Orientation Impairment: None Memory Impairment: None Attention: Normal Hallucinations: Auditory, Visual Other: None Suicidality: Ideation Homicidality: None Delusions: None Behavior: Guarded Insight: Poor Judgment: Poor Treatment PALIPERIDONE 12 MG P.O. DAILY OLANZAPINE 25 MG P.O. DAILY LITHIUM CARBONATE 450 MG CR P.O. Q.A.M. Monitoring by Staff, Milieu, Group, and Individual counseling as needed -- According to the [place] Suicide Assessment the above named patient is on Q15 MINUTE CHECKS. VOLUNTARY REVIEW OF Clinical notes [X ] RN notes [X] PCT documentation [X] SW notes Labs [ X] Medications [X] Care trends/care activity [X] Vitals [X] DISCUSSION WITH vendor specialist [X] Staff SW [X] Treatment Team [X] Discharge UNSURE AT THIS TIME. [facility] OR [employer] CODING VISIT-PSYCHIATRY Date of Service: August 24, 2024 Billing Provider: CEHSTER FAUSTIN APRN Psych Common Visit Codes: [id number] INP/OBS CARE(Mod) CHESTER FAUSTIN APRN August 24, 2024 07:38
[2024-08-24] MEDS: OLANZapine 2.5MG tablet PO ONE (07:56)
[2024-08-24 08:00] VITALS: BP 104/70; PULSE 63; RESP 18; TEMP 96.5; O2SAT 96
[2024-08-24] MEDS: OLANZAPINE 5 MG TABLET PO SCH (08:00)
[2024-08-24] MEDS: olanzapine 10mg tablet PO SCH (08:00)
--- NOTE | 2024-08-24 17:41 | PROGRESS NOTE- Residence ---
Progress Note - Resident Providers to CC Resident Creating Document: [facility] CC: ENA BOWERS MD ~ Central Line/PICC still needed: N\A Antibiotic Timeout Antibiotic Ordered?: No Subjective Patient is seen this evening. No complaints noted. Objective Vital Signs Date Time Temp Pulse Resp B/P (MAP) Pulse Ox O2 Delivery O2 Flow Rate FiO2 08/24/24 08:00 96.5 63 18 104/70 (81) 96 Room Air Result Diagram: 08/21/24 1120 08/21/24 1120 General: Adult male, AAO x4, not in apparent distress Head: Normocephalic with an atraumatic Eyes: Pupils- 3mm, reacting to light, conjunctiva- anicteric Nose and throat: No polyps, septum- normal, no mucosal ulcers Neck: Supple, no lymphadenopathy, no carotid bruit Respiratory: No use of accessory muscles of respiration, Bilateral normal vesiscular breath sounds heard. No wheeze, rhochi or creps Cardiac: S1-S2 heard, rythm regular, no gallop/murmur Abdomen: non distended, no tenderness, no organomegaly, bowel sounds- heard Extremities: no clubbing, no pedal edema, no deformities, peripheral pulses- 2+ Skin: warm and dry, no rash, no purpura Neuro: No focal deficit, gross cranial nerve exam- normal Assessment Assessment 39-year-old male with a history of schizophrenia was admitted into the mental health unit for suicidal ideation Plan Plan Schizophrenia -Managed as per Psychiatry Dyslipidemia LDL -116 Repeat lipid profile in three months Likely secondary to antipsychotics No acute medical issues found Labs reviewed Hospitalist team we will continue to follow Date of Service: August 24, 2024 Billing Provider: ENA BOWERS MD Common Visit Codes: [id number] INP/OBS CARE(MOD) [facility] August 24, 2024 17:41 ENA BOWERS MD August 24, 2024 21:23
[2024-08-24 19:00] VITALS: RESP 18; O2SAT 96
[2024-08-24 20:00] VITALS: BP 100/63; PULSE 67; RESP 16; TEMP 98.7; O2SAT 98
--- NOTE | 2024-08-25 07:42 | PROGRESS NOTE ---
Progress Note Dictate Providers to CC ~ Central Line/PICC still needed: N\\A Antibiotic Ordered?: No Objective Vitals Vital Signs Date Time Temp Pulse Resp B/P (MAP) Pulse Ox O2 Delivery O2 Flow Rate FiO2 08/24/24 20:00 98.7 67 16 100/63 (75) 98 Room Air Lab Results: 08/21/24 1120 08/21/24 1120 Problem\\Assessment\\Plan Problems/Diagnosis: (1) Schizo-affective schizophrenia, chronic condition with acute exacerbation (2) Suicidal ideation Psychiatrist's Progress Note Date of Service: August 25, 2024 Notes CHART REVIEW Tc is a 39-year-old male being held as [facility] on a 5150 for danger to self. Client was awake and alert. He was disoriented. He described his mood as suicidal. Mood appeared depressed and affect flat. Recall was immediate. Client reported AH/VH was paranoid stated I am hearing voices and seeing people that want to kill me. Client reports that he forgot to take his medication for the last several days and became suicidal this morning and walked out into traffic. He states that he realized that he was in trouble and called EMS. Client continues to endorsed SI in his eye able to plan for safety. ASSESSMENT The patient was interviewed in observation room. The patient was actively resting in bed with eyes closed. The patient endorses "I am still having suicidal thoughts and I still see people telling me to kill myself." The patient endorses adequate sleep and food intake. Denies HI. The patient is stable no acute distress noted. The patient is less depressed, suicidal, and engaged during session. Report patient is medication compliant. Per staff report no abnormal behaviors noted. Will continue daily assessment and adjusting treatment as needed. Closely monitor behavior and response to medication during hospitalization. Results Of any Diagn. Testing Results Of any Diagn. Testing REVIEW OF LABS SODIUM 141 POTASSIUM 3.6 CHLORIDE 105 ANION GAP8 BUN 12 CREATININE 1.06 GLUCOSE 101 CALCIUM 8.8 TRIGLYCERIDES 94 CHOLESTEROL 188 LDL 116 HDL 52 NEGATIVE WBC 6.4 RBC 4.95 HEMOGLOBIN 14.7 HEMATOCRIT 42.3 PLATELET 227 Speech: Other (CIRCUMSTANTIAL) Eye Contact: Other (INTERMITTENT) Motor Activity: Normal Affect: Flat Mood: Depressed Orientation Impairment: None Memory Impairment: None Attention: Normal Hallucinations: Auditory, Visual Suicidality: Ideation Homicidality: None Delusions: None Behavior: Cooperative Insight: Poor Judgment: Poor Treatment PALIPERIDONE 12 MG P.O. DAILY OLANZAPINE 25 MG P.O. DAILY LITHIUM CARBONATE 450 MG CR P.O. Q.A.M. Monitoring by Staff, Milieu, Group, and Individual counseling as needed -- According to the [place] Suicide Assessment the above named patient is on Q15 MINUTE CHECKS. VOLUNTARY REVIEW OF Clinical notes [X ] RN notes [X] PCT documentation [X] SW notes Labs [ X] Medications [X] Care trends/care activity [X] Vitals [X] DISCUSSION WITH director of estate [X] Staff SW [X] Treatment Team [X] Discharge UNSURE AT THIS TIME. [facility] OR [email or web address] CODING VISIT-PSYCHIATRY Date of Service: August 25, 2024 Billing Provider: CHESTER FAUSTIN APRN Psych Common Visit Codes: [id number] INP/OBS CARE(Mod) CHESTER FAUSTIN APRN August 25, 2024 07:42
[2024-08-25 08:00] VITALS: BP 105/68; PULSE 67; RESP 14; TEMP 98.2; O2SAT 97
[2024-08-25 08:46] VITALS: RESP 14; O2SAT 100
[2024-08-25 19:00] VITALS: RESP 15; O2SAT 97
[2024-08-25 20:00] VITALS: BP 108/66; PULSE 68; RESP 16; TEMP 97.9; O2SAT 97
[2024-08-26 07:36] VITALS: BP 100/66; PULSE 58; RESP 15; TEMP 97.1; O2SAT 95
--- NOTE | 2024-08-26 11:21 | PROGRESS NOTE ---
Progress Note Dictate Providers to CC ~ Central Line/PICC still needed: N\\A Antibiotic Ordered?: No MRSA Education MRSA Education Provided to pt: No Objective Vitals Vital Signs Date Time Temp Pulse Resp B/P (MAP) Pulse Ox O2 Delivery O2 Flow Rate FiO2 08/26/24 07:36 97.1 58 15 100/66 (77) 95 Room Air Problem\\Assessment\\Plan Problems/Diagnosis: (1) Schizo-affective schizophrenia, chronic condition with acute exacerbation (2) Suicidal ideation Psychiatrist's Progress Note Date of Service: August 26, 2024 Notes CHART REVIEW Tc is a 39-year-old male being held as [facility] on a 5150 for danger to self. Client was awake and alert. He was disoriented. He described his mood as suicidal. Mood appeared depressed and affect flat. Recall was immediate. Client reported AH/VH was paranoid stated I am hearing voices and seeing people that want to kill me. Client reports that he forgot to take his medication for the last several days and became suicidal this morning and walked out into traffic. He states that he realized that he was in trouble and called EMS. Client continues to endorsed SI in his eye able to plan for safety. ASSESSMENT The patient was interviewed in observation room. The patient was actively walking in hallway. The patient endorses "I am still feeling suicidal and I still hear voices and see people." The patient denies a plan.The patient endorses adequate sleep and food intake. Denies HI. The patient is stable no acute distress noted. The patient presents calm, cooperative, and engaged during session. Despite the patient endorsing suicidal ideation he is noted engaging, laughing with staff and peers in the hallway. Report patient is medication compliant. Per staff report no abnormal behaviors noted. Will continue daily assessment and adjusting treatment as needed. Closely monitor behavior and response to medication during hospitalization. Results Of any Diagn. Testing REVIEW OF LABS SODIUM 141 POTASSIUM 3.6 CHLORIDE 105 ANION GAP8 BUN 12 CREATININE 1.06 GLUCOSE 101 CALCIUM 8.8 TRIGLYCERIDES 94 CHOLESTEROL 188 LDL 116 HDL 52 NEGATIVE WBC 6.4 RBC 4.95 HEMOGLOBIN 14.7 HEMATOCRIT 42.3 PLATELET 227 Appearnace: Other (APPROPRIATE. WEARING GREEN SCRUBS) Speech: Other (CIRCUMSTANTIAL) Eye Contact: Normal Motor Activity: Normal Affect: Constricted Orientation Impairment: None Memory Impairment: None Attention: Normal Hallucinations: None Other: None Suicidality: Ideation Homicidality: None Delusions: None Behavior: Cooperative Insight: Fair, Poor Judgment: Poor Treatment Continue current drug regime at this time. PALIPERIDONE 12 MG P.O. DAILY OLANZAPINE 25 MG P.O. DAILY LITHIUM CARBONATE 450 MG CR P.O. Q.A.M. Monitoring by Staff, Milieu, Group, and Individual counseling as needed -- According to the [place] Suicide Assessment the above named patient is on Q15 MINUTE CHECKS. VOLUNTARY REVIEW OF Clinical notes [X ] RN notes [X] PCT documentation [X] SW notes Labs [ X] Medications [X] Care trends/care activity [X] Vitals [X] DISCUSSION WITH drying frame operator [X] Staff SW [X] Treatment Team [X] Discharge UNSURE AT THIS TIME. [facility] OR [employer] CODING VISIT-PSYCHIATRY Date of Service: August 26, 2024 Billing Provider: CHESTER FAUSTIN APRN Psych Common Visit Codes: [id number] INP/OBS CARE(Low) CHESTER FAUSTIN APRN August 26, 2024 11:21
--- NOTE | 2024-08-26 11:24 | PROGRESS NOTE ---
Daily Progress Note Providers to CC ~ no new complaint today, resting comfortably in the bed Central Line/PICC still needed: No Villanueva-Non Protocol Villanueva Indications Met/Not Met: F/C Indications Not Met Antibiotic Timeout Antibiotic Ordered?: No MRSA Education MRSA Education Provided to pt: No Subjective As above Objective Vital Signs Date Time Temp Pulse Resp B/P (MAP) Pulse Ox O2 Delivery O2 Flow Rate FiO2 08/26/24 07:36 97.1 58 15 100/66 (77) 95 Room Air Vital signs, stable ,afebrile. Pulse Oximetry reflects adequate oxygenation. General: well developed, well nourished. Awake , alert, and oriented x4, resting comfortably in the bed, in no acute distress . Skin: Warm, dry, no pallor, no rash or petechiae. HEENT: Atraumatic, normocephalic, EOMI, anicteric sclera B; pink conjunctiva; PERRLA, normal oropharynx, moist oral and nasal mucosa. Tympanic membrane , nose , throat clear. Neck: Trachea midline. Supple, full range of motion, no JVD, bruit , hepatojugular reflex , lymphadenopathy or masses, or other lesions Cardiac: Regular rhythm, regular rate no murmurs, rubs, or gallops. Normal S1 and S2, no S3 noticed. PMI is normal. Respiratory: Equal breath sounds bilaterally, no tachypnea; lungs clear to auscultation bilaterally, no wheezing ,rub or rales, or crackles. Chest wall is symmetric and without deformity. No signs of trauma. Chest wall is nontender. No signs of respiratory distress. Resonance is normal upon percussion bilaterally. Gastrointestinal: Abdomen symmetric, non-distended, soft, non-tender, normal bowel sounds x4 quadrant, normoactive, no hepatosplenomegaly , no masses , no bruit, no flank pain bilaterally. No voluntary guarding, rebound, or rigidity. No tenderness to percussion. No pulsatile masses. Equal femoral pulses. No Cazares's sign or McBurney point tenderness. Back; no CVA tenderness bilaterally, no deformities. Neck and back are without deformity as well. No tenderness noted on palpation of the spinous processes. Spinous processes are midline. Cervical, thoracic, and lumbar paraspinal muscles are not tender and are without spasm. : normal external genitalia, without lesions, swelling, masses or tenderness. Musculoskeletal: Extremities, normal range of motion, non-tender, muscle strength 5/5 x 4. Negative Homans signs bilaterally on lower extremity. Distal pulses full symmetrical, no clubbing, cyanosis , edema. Neurological: Speech is clear, alert, and oriented x 4. No motor or sensory deficit, deep tendon reflexes normal, cerebellar intact. Cranial nerves II-XII intact. Psych: Alert and or appropriate, normal affect. Vascular: Good distal pulses, which are equal x4; capillary refill less than 2 seconds. Lymphatic, no lymphadenopathy. Problem\Assessment\Plan Assessment 39-year-old male with a history of schizophrenia was admitted into the mental health unit for suicidal ideation Plan Plan Schizophrenia -Managed as per Psychiatry Dyslipidemia LDL -116 Repeat lipid profile in three months Likely secondary to antipsychotics Labs reviewed Hospitalist team we will continue to follow per protocol Sepsis Screening Reassessment Date: August 26, 2024 Date of Service: August 26, 2024 Billing Provider: DESMOND BINGHAM MD Common Visit Codes: [id number] INP/OBS CARE(LOW) DESMOND BINGHAM MD August 26, 2024 11:24
[2024-08-26 19:00] VITALS: RESP 16; O2SAT 94
[2024-08-26 20:00] VITALS: BP 104/66; PULSE 64; RESP 16; TEMP 97.2; O2SAT 94
[2024-08-27] MEDS ORDERED: OLAN5TAB75 PO (05:23)
[2024-08-27] MEDS ORDERED: lithium carbonate 450mg CR PO (05:23)
[2024-08-27 07:00] VITALS: RESP 16; O2SAT 99
[2024-08-27 07:59] VITALS: BP 102/62; PULSE 55; RESP 16; TEMP 96.9; O2SAT 99
--- NOTE | 2024-08-27 13:03 | PROGRESS NOTE ---
Progress Note Dictate Providers to CC ~ Central Line/PICC still needed: N\\A Antibiotic Ordered?: No MRSA Education MRSA Education Provided to pt: No Objective Vitals Vital Signs Date Time Temp Pulse Resp B/P (MAP) Pulse Ox O2 Delivery O2 Flow Rate FiO2 08/27/24 07:59 96.9 55 16 102/62 (75) 99 Room Air Problem\\Assessment\\Plan Problems/Diagnosis: (1) Schizo-affective schizophrenia, chronic condition with acute exacerbation (2) Suicidal ideation Psychiatrist's Progress Note Date of Service: August 27, 2024 Notes CHART REVIEW Tc is a 39-year-old male being held as [facility] on a 5150 for danger to self. Client was awake and alert. He was disoriented. He described his mood as suicidal. Mood appeared depressed and affect flat. Recall was immediate. Client reported AH/VH was paranoid stated I am hearing voices and seeing people that want to kill me. Client reports that he forgot to take his medication for the last several days and became suicidal this morning and walked out into traffic. He states that he realized that he was in trouble and called EMS. Client continues to endorsed SI in his eye able to plan for safety. ASSESSMENT The patient was interviewed in observation room. The patient was actively sitting edge of bed. The patient endorses "I am no longer suicidal, the meds have kicked in." "I still hear voices and see people but they are benign." The patient endorses adequate sleep and food intake. Denies HI. The patient is stable no acute distress noted. The patient presents calm, cooperative, and engaged during session. Report patient is medication compliant. Per staff report no abnormal behaviors noted. Will continue daily assessment and adjusting treatment as needed. Closely monitor behavior and response to medication during hospitalization. Results Of any Diagn. Testing REVIEW OF LABS SODIUM 141 POTASSIUM 3.6 CHLORIDE 105 ANION GAP8 BUN 12 CREATININE 1.06 GLUCOSE 101 CALCIUM 8.8 TRIGLYCERIDES 94 CHOLESTEROL 188 LDL 116 HDL 52 NEGATIVE WBC 6.4 RBC 4.95 HEMOGLOBIN 14.7 HEMATOCRIT 42.3 PLATELET 227 Appearnace: Other Speech: Other (CIRCUMSTANTIAL) Eye Contact: Normal Motor Activity: Normal Affect: Full Orientation Impairment: None Memory Impairment: None Attention: Normal Hallucinations: Auditory, Visual Other: None Suicidality: None Homicidality: None Delusions: None Behavior: Cooperative Insight: Fair Judgment: Fair Treatment PALIPERIDONE 12 MG P.O. DAILY OLANZAPINE 25 MG P.O. DAILY LITHIUM CARBONATE 450 MG CR P.O. Q.A.M. Monitoring by Staff, Milieu, Group, and Individual counseling as needed -- According to the [place] Suicide Assessment the above named patient is on Q15 MINUTE CHECKS. VOLUNTARY REVIEW OF Clinical notes [X ] RN notes [X] PCT documentation [X] SW notes Labs [ X] Medications [X] Care trends/care activity [X] Vitals [X] DISCUSSION WITH nougat candy maker helper [X] Staff SW [X] Treatment Team [X] Discharge UNSURE AT THIS TIME. [facility] OR [employer] CODING VISIT-PSYCHIATRY Date of Service: August 27, 2024 Billing Provider: CHESTER FAUSTIN APRN Psych Common Visit Codes: [id number] INP/OBS CARE(Low) CHESTER FAUSTIN APRN August 27, 2024 13:03
[2024-08-27 19:00] VITALS: RESP 15; O2SAT 97
[2024-08-27 20:00] VITALS: BP 114/74; PULSE 79; RESP 15; TEMP 97.7; O2SAT 97
[2024-08-28 07:00] VITALS: RESP 18; O2SAT 96
[2024-08-28 08:00] VITALS: BP 106/71; PULSE 60; RESP 18; TEMP 97.1; O2SAT 96
--- NOTE | 2024-08-28 14:41 | DISCHARGE SUMMARY ---
Discharge Summary Providers to CC ~ Discharge Summary Admission Diagnosis: SCHIZOAFFECTIVE CHRONIC CONDITION WITH ACUTE EXACERBATION. SUICIDAL IDEATI Hospital Course DATE OF ADMISSION: DATE OF DISCHARGE: Discharge Diagnosis\Comment: SCHIZOAFFECTIVE SCHIZOPHRENIA CHRONIC CONDITION WITH ACUTE EXACERBATION SUICIDAL IDEATION Operations\Procedures: NONE Consultants: MEDICAL TEAM Complications: NONE Condition on DC: Stable 2 or more antipsychotic used: Yes 2/more antipsychotic addressed: Yes Does Patient smoke: No Smoking education given.: No New Medications: [lithium carbonate 450mg CR] () 450 MG TABLET.SA 900 MG PO QAM, #60 Olanzapine (Olanzapine) 5 Mg Tablet 25 MG PO DAILY for 30 Days, #120 TAB Continued Medications: Paliperidone (Invega) 6 Mg Tab.er.24 2 TAB PO QAM for 30 Days, #60 TAB (This prescription has been renewed) Trazodone HCl (Trazodone HCl) 50 Mg Tablet 1 TAB PO HS for 30 Days, #30 TAB (This prescription has been renewed) Discontinued Medications: [lithium carbonate 450mg CR] () 450 MG TABLET.SA 900 MG PO HS for 30 Days, #60 Olanzapine (Olanzapine) 10 Mg Tablet 20 MG PO HS for 30 Days, #60 TAB Discharge Summary: CHART REVIEW Tc is a 39-year-old male being held as [facility] on a 5150 for danger to self. Client was awake and alert. He was disoriented. He described his mood as suicidal. Mood appeared depressed and affect flat. Recall was immediate. Client reported AH/VH was paranoid stated I am hearing voices and seeing people that want to kill me. Client reports that he forgot to take his medication for the last several days and became suicidal this morning and walked out into traffic. He states that he realized that he was in trouble and called EMS. Client continues to endorsed SI in his eye able to plan for safety. Patient actively seen and examined on day of discharge 08/28/2024, by myself, MAURI Lou. The patient is interviewed in psychiatric exam room. Denies SI. Denies HI. + AVH with significant improvement. Tc was able to formulate a safety plan which includes going to the emergency room if symptoms return or worsen. Call [phone] or [phone] for immediate assistance if necessary During his hospital stay, Tc receive multidisciplinary treatment he adhered to his medication regimen and has been pleasant and cooperative. He denies any suicidal ideation (SI), homicidal ideation (HI), auditory/visual hallucination (HI). Staff has reported no behavioral issues, and the patient has been sleeping well, adequate food intake, with no mood or behavioral changes noted. The decision to discharge Tc was made in consensus with the treatment team, including the social insurance specialist, microfilm duplicating unit supervisor, and viscose cellar charge hand on duty. A 30 day supply of medications was E scribed to pharmacy of choice. MENTAL STATUS EXAM APPEARANCE: APPROPRIATELY. DRESSED IN STREET CLOTHING. SPEECH: NORMAL EYE CONTACT: NORMAL AFFECT: CONGRUENT WITH MOOD MOOD: EUTHYMIC ORIENTATION IMPAIRMENT: NONE MEMORY IMPAIRMENT: NONE ATTENTION: NORMAL HALLUCINATIONS: NONE SUICIDALITY: NONE DELUSIONS: NONE BEHAVIOR: COOPERATIVE, PLEASANT JUDGMENT: FAIR INSIGHT: FAIR Continue Current Inpatient Psychotropic Regimen @ home Follow-Up with Psychiatric Provider Safety Plan Discussed DISCHARGE CONDITION: His readiness for discharge is supported by his stable mental status, adherence to treatment, and proactive approach to managing his mental health. Denies SI. Denies HI. + A/V/H with improvement. Continued follow-up care has been arranged to ensure ongoing support and monitor. Patient discharged to [facility]. *Problems/Diagnosis: (1) Schizo-affective schizophrenia, chronic condition with acute exacerbation (2) Suicidal ideation Status: Resolved Total Time Spent on D/C: > 30 Minutes Counseling Services Smoking & Tobacco Cessation: N/A CODING VISIT-PSYCHIATRY Date of Service: August 28, 2024 Billing Provider: CHESTER FAUSTIN APRN Psych Common Visit Codes: [id number] DISCH DAY >30min CHESTER FAUSTIN APRN August 28, 2024 14:38
== END 2024-08-28 09:52 | DRG 885 ==
LOC: ER 10:36 → ADULT MH 17:00 → UNDOADMIN 17:00 → ADULT MH 20:00
PROVIDERS: ADMIT Psychiatry & Neurology Psychiatry; ATTEND Psychiatry & Neurology Psychiatry
PROC: GZHZZZZ Group Psychotherapy (ICD-10-PCS; principal; 2024-08-22)
PROC: GZ51ZZZ Individual Psychotherapy, Behavioral (ICD-10-PCS; 2024-08-22)
DX: F25.9 Schizoaffective disorder, unspecified (principal); R45.851 Suicidal ideations; F32.A Depression, unspecified; Z20.822 Contact with and (suspected) exposure to COVID-19; E78.5 Hyperlipidemia, unspecified; F41.9 Anxiety disorder, unspecified; Z88.8 Allergy status to other drugs, medicaments and biological substances; Z79.899 Other long term (current) drug therapy; Z81.8 Family history of other mental and behavioral disorders
CPT/HCPCS: 36415; 80048; 80061; 80178; 80305; 80320; 80329; 85025; 87081; 87811; 99285